=== PATIENT | female | born 1955 | race Caucasian/White ===

== ENCOUNTER 2018-03-23 13:30 | Outpatient (RCR) | payer BC, SELFPAY ==
--- NOTE | 2018-03-23 13:30 | PTDS_ITS ---
Date: March 23, 2018 Referring: Blue Ross MD Diagnosis: S/p L proximal humeral fracture 09/29/17 PT Dx: Same Treatment dates: 12/29/17 to 03/23/18 Subjective: Shahnaz states her shoulder is feeling pretty good. She continues to have concerns about her exercises influencing her symptoms of sciatica. States she continues to have difficulty reaching overhead, although feels that her exercises are getting easier. She would like to review these today. Standardized Measures: [] Objective: Posture: Patient demonstrates good upright posturing. During reaching activities she does demonstrate compensatory trunk movements with R sidebending. Palpation: Mild hypomobility noted through the glenohumeral joint on the L. ROM: Cervical motions are WNL. Active shoulder flexion allows 145 degrees, passively she tolerates 160 degrees with firm end feel. Passive IR/ER are full. Abduction allows 145. Strength: 3-/5 flexion, IR/ER are each 4/5. Treatment: Manual Therapy [id number]: Therapeutic Procedure [id number]: Consisted of manual stretching to L shoulder with passive range through all planes. Patient received sustained stretching into shoulder flexion with ending ROM as noted above. We reviewed her HEP, she does demonstrate good positioning and technique with bent over exercises, however she was instructed in various modifications including UE support to kitchen counter and completion in supported prone position. She is also instructed in sciatic nerve glides on the L for home completion and she received manual stretching to the piriformis and single knee to chest stretching. We discussed appropriate treatment planning and goals at length. Patient is in agreement with continuation of HEP. Treatment Time: 30 mins Assessment: Patient has been participating in skilled PT intervention for rehab following a L proximal humeral fracture suffered in September of 2017. She does demonstrate continued limitations in her ROM, however has been compliant with the self stretching and progressive strengthening program. 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 We also review safe positioning and technique for these at length today. ST: Functional reach of L UE allowing to put dishes away in overhead shelves. ( MET) 2: Patient able to independently don/doff shirt. (MET) LT: Patient able to resume gardening activities without exacerbation of pain. ( MET) 2: Full independence in self mobilization and continued strengthening activities. (MET) Plan: D/c to HEP. SS/dl
== END 2018-04-10 23:59 | disposition home or self-care (01) ==
LOC: PT 13:30
PROVIDERS: PCP Family Medicine; Referring Provider Orthopaedic Surgery; Visit Provider Orthopaedic Surgery
DX: S42.322D Displaced transverse fracture of shaft of humerus, left arm, subsequent encounter for fracture with routine healing (principal)
CPT/HCPCS: 97110; 97140

== ENCOUNTER 2019-03-17 00:55 | Outpatient (CLI) | payer BC, SELFPAY ==
--- NOTE | 2019-03-17 10:30 | DI.MAMMO_ITS ---
SYMPTOM/DIAGNOSIS: SCREENING Z12.31 BILATERAL SCREENING MAMMOGRAM: Mammograms were interpreted according to the usual protocol including computer analysis with CAD system, tomosynthesis and C view imaging. Comparison is made with exams from 2014 through 2018. The breasts are composed of extremely dense fibroglandular tissue, breast density category D. No suspicious masses or suspicious microcalcifications are seen. There has been no significant change. IMPRESSION: Category 1, negative mammogram. Yearly sceening mammography is recommended. Breast density category D. SA ASSESSMENT OF FINDINGS: Negative. Category 1. Patient will receive a letter notifying them of these results. BI-RADS category D. The breasts are extremely dense, which lowers the sensitivity of mammography.
== END 2019-03-17 01:15 ==
PROVIDERS: PCP Family Medicine; Visit Provider Obstetrics & Gynecology Gynecology
DX: Z12.31 Encounter for screening mammogram for malignant neoplasm of breast (principal)
CPT/HCPCS: 77063; 77067

== ENCOUNTER 2020-03-20 01:51 | Outpatient (CLI) | payer BC, SELFPAY ==
--- NOTE | 2020-03-20 11:00 | DI.MAMMO_ITS ---
EXAM: MG MAMMO SCREENING CLINICAL HISTORY: screening TECHNIQUE: Bilateral full field digital CC and MLO mammographic images were obtained with 3D tomosyn thesis and utilizing computer aided detection (CAD). COMPARISON: Available for comparison. FINDINGS: Masses/Architectural Distortion: There is a small asymmetric density in the medial right breast seen on the craniocaudad view. Microcalcifications: No suspicious pleomorphic-type are seen. Skin Thickening/Nipple Retraction: None. IMPRESSION: 1. Small asymmetric density in the medial right breast on the CC view. 2. Spot compression view and right breast ultrasound are requested for further evaluation. BI-RADS Category 0 - Assessment Incomplete: Need additional imaging evaluation Breast Density - Category C - Heterogeneously dense The mammogram demonstrates the patient's breast tissue is dense. Dense breast tissue is very common a nd is not abnormal but dense breast tissue can make it harder to find cancer on a mammogram. Also, de nse breast tissue may increase their breast cancer risk. This information about the result of the [facility] mogram report was provided to the patient to raise their awareness. Use this report when you speak wi th the patient about their risks for breast cancer, which includes their family history. At that time , you may recommend for more screening tests (Ultrasound or MRI) as they might be useful based on the ir risk. A negative radiographic report should not delay biopsy if a dominant or clinically suspicious mass is present. Up to ten percent of cancers are not identified on mammography. A negative report may reinforce clinical impression. Adenosis and dense breasts may obscure an underlying neoplasm. False positive reports average 6 to 10%. Patient will receive a letter notifying them of these results.
== END 2020-03-20 02:11 ==
PROVIDERS: PCP Family Medicine; Visit Provider Nurse Practitioner Family
DX: Z12.31 Encounter for screening mammogram for malignant neoplasm of breast (principal); R92.2 Inconclusive mammogram
CPT/HCPCS: 77063; 77067

== ENCOUNTER 2020-03-21 01:31 | Outpatient (CLI) | payer BC, SELFPAY ==
--- NOTE | 2020-03-21 11:06 | DI.MAMMO_ITS ---
EXAM: MG MAMMO SCREEN CALL BACK UNI CLINICAL HISTORY: F/U MAMMO,SMALL ASYMMETRIC DENSITY MEDIAL RT BREAST. TECHNIQUE: Craniocaudal and mediolateral oblique Full Field Digital Mammography views of the right b reast with Computer Aided Diagnosis followed by Tomosynthesis and right breast ultrasound. COMPARISON: Priors available for comparison. FINDINGS: Mammography/Tomosynthesis: Masses/Architectural Distortion: None seen. Microcalcifictions: No suspicious pleomorphic-type are seen. Skin Thickening/Nipple Retraction: None. Right breast US: Echotexture: Normal appearance of the glandular tissue. Shadowing: No suspicious foci. Cyst: None. Solid lesions: None seen. Ductal dilation: None. IMPRESSION: 1. No evidence of malignancy is noted. 2. Six-month follow-up right mammogram is recommended. 3. The findings were discussed with the patient on the date of the examination. BI-RADS Category 3 - 6 month - Probably Benign Finding: Recommend follow-up mammography in 6 months Breast Density - Category C - Heterogeneously dense The mammogram demonstrates the patient's breast tissue is dense. Dense breast tissue is very common a nd is not abnormal but dense breast tissue can make it harder to find cancer on a mammogram. Also, de nse breast tissue may increase their breast cancer risk. This information about the result of the [facility] mogram report was provided to the patient to raise their awareness. Use this report when you speak wi th the patient about their risks for breast cancer, which includes their family history. At that time , you may recommend for more screening tests (Ultrasound or MRI) as they might be useful based on the ir risk. A negative radiographic report should not delay biopsy if a dominant or clinically suspicious mass is present. Up to ten percent of cancers are not identified on mammography. A negative report may reinforce clinical impression. Adenosis and dense breasts may obscure an underlying neoplasm. False positive reports average 6 to 10%. Patient will receive a letter notifying them of these results.
== END 2020-03-21 01:51 ==
PROVIDERS: PCP Family Medicine; Visit Provider Nurse Practitioner Family
DX: Z12.39 Encounter for other screening for malignant neoplasm of breast (principal); R92.8 Other abnormal and inconclusive findings on diagnostic imaging of breast; R92.2 Inconclusive mammogram
CPT/HCPCS: 76642; 77063; 77067

== ENCOUNTER 2020-03-31 09:19 | Day surgery (SDC) | payer BC, SELFPAY ==
[2020-03-31] MEDS: Lactated Ringers 500 ML IV (09:50)
[2020-03-31] MEDS: Lactated Ringers 1,000 ML 80 ML IV (09:51)
[2020-03-31 09:54] VITALS: BP 102/73; PULSE 88; RESP 16; TEMP 35.8; O2SAT 100
--- NOTE | 2020-03-31 11:14 | BOWEL_PTH ---
PATIENT: Kimberly Red LOC: [facility] U#:[id number] AGE/SX: 64/F ROOM: RE03/31/[address]: Darling Farooq MD : 1955 BED: DIS: 03/31/2020 SPEC #: [id number] RECD: 03/31/20 12:37 STATUS: JOSE REJose #: [id number] GAYE: 03/31/20 11:[address]: Darling Farooq DEPT: Surgical Specimen RECD BY: Lanette Moise ENTERED: 03/31/20 12:37 SP TYPE: Bowel OTHR DR: Carmela Lockwood Tissues: 1 - BIOPSY BOWEL 2 - BIOPSY BOWEL Procedures: GROSS AND MICRO LEVEL 4 Comments: [id number]
--- NOTE | 2020-03-31 11:40 | W.PM.DSUDISC ---
Discharge Plan Disposition Patient Disposition: HOME Condition: Good Discharge Details Reason For Visit: Colonoscopy Attending Provider: Darling Farooq Primary Care Provider: Carmela Lockwood Home Meds and New Rx's Prescriptions: Continued ferrous sulfate [Iron (ferrous sulfate)] 325 MG tablet 325 mg PO 3X week RF: 0 ascorbic acid (vitamin C) [Vitamin C] 500 MG capsule, extended release 500 mg PO DAILY RF: 0 calcium carbonate 500 MG tablet,chewable 500 mg PO DAILY RF: 0 Discharge Instructions Additional Instructions: Findings: Two small polyps were removed. My office will contact you with biopsy results. Follow up: Plan for a colonoscopy in 3 years. Please call if you develop: fevers >101.5 Nausea or Vomiting Abdominal pain that is not transient Bleeding DAY SURGERY UNIT POST COLONOSCOPY INSTRUCTIONS 1. Because there will be medication in your system for the next 24 hours, you may feel a little sleepy. Your coordination will be affected. Therefore: a. Do not drive or operate dangerous equipment for 24 hours. b. Do not drink alcohol beverages for 24 hours (not even beer). c. Plan to go home and rest for the day. 2. Generally there are no restrictions on your activity after a day or so has gone by, but you may feel a bit fatigued for a few days. 3 After you arrive home you may have a light meal and return to a normal diet as you can tolerate it without feeling sick to your stomach. 4. After surgery, you may feel pain or discomfort. This should be only transient, but if it persists please contact your doctor. 5. If there are any questions regarding the findings of your procedure, please feel free to contact your doctor. 6. If you are unable to contact your doctor with a problem, contact the hospital at [phone]. 7. Continue all your regular medications unless directed otherwise. I understand the above instructions and have no questions. Signature of Patient or Responsible Adult Escort Date/Time Name of Responsible Adult Escort Signature of Nurse Date/Time Activity:: Activity as Tolerated Diet:: As Tolerated Discharge Orders Discharge Orders: Discharge Order (Routine); Ordered 03/31/20 Ordered By: Darling Farooq DS: Diagnosis Discharge Diagnosis (1) Family history of colon cancer: Status: Acute (2) Colon polyps: Status: Acute
--- NOTE | 2020-03-31 11:42 | W.COLOREPORT ---
Date of service: 03/31/20 Time of Service: 11:42 Colonoscopy Report Date of procedure: 03/31/20 Pre-op diagnosis general: FH colon cancer, history of colon polyps Post-op diagnosis procedure note: other (Colon polyps) Procedure: Colonoscopy with snare polypectomy Surgeon: Darling Farooq Anesthesia proc note operative: MAC Indications: This 64 year old woman presents for colonoscopy. Her sister was treated for colon cancer. The patient had a colonoscopy in 2016 that showed a hyperplastic polyp. Procedure Description: The patient was placed in the left [place] position. Propofol was titrated to sedation. Digital rectal examination revealed no abnormalities. The scope was advanced to the cecum without difficulty. The ileocecal valve and appendiceal orifice were clearly identified. The prep was good. In the ascending colon a less than 1cm polyp was removed with the snare and retrieved for pathology. No abnormalities were seen in the transverse, descending colon. In the sigmoid colon a less than 1cm polyp was removed. A hemostatic clip was applied to the site as a precaution. The rectum was normal including on retroflexed view. The patient tolerated the procedure well and was stable to recovery. Plan for routine colonoscopy in 3 years or sooner if symptoms indicate.
[2020-03-31 12:22] VITALS: BP 83/56; PULSE 75; RESP 16; TEMP 36; O2SAT 100
== END 2020-03-31 12:35 | disposition home or self-care (01) ==
PROVIDERS: PCP Family Medicine; Visit Provider Surgery
PROC: 0DJD8ZZ Inspection of Lower Intestinal Tract, Via Natural or Artificial Opening Endoscopic (ICD-10-PCS; CPT 45378; principal; 2020-03-31 11:00)
DX: Z12.11 Encounter for screening for malignant neoplasm of colon (principal); Z80.0 Family history of malignant neoplasm of digestive organs; D12.2 Benign neoplasm of ascending colon; D12.5 Benign neoplasm of sigmoid colon; Z87.19 Personal history of other diseases of the digestive system
CPT/HCPCS: 45385; 45382; 88305

== ENCOUNTER 2020-09-20 02:06 | Outpatient (CLI) | payer BC, SELFPAY ==
--- NOTE | 2020-09-20 06:30 | DI.MAMMO_ITS ---
EXAM: MG MAMMO DIAGNOSTIC UNI CLINICAL HISTORY: 6 month f/u,diagnostic, r92.8. COMPARISON: MG MAMMOGRAPHY DIGITAL SCREENING BILATERAL from 04/04/2015 MG Screening Bilat Mammo from 09/24/2016 MG MG mammo screening from 03/17/2019 MG MG MAMMO SCREENING from 03/20/2020 US US BREAST RT LIMITED from 03/21/2020 MG MG MAMMO SCREEN CALL BACK UNI from 03/21/2020 [id number] TECHNIQUE: Craniocaudal and mediolateral oblique Full Field Digital Mammography views of the right breast with Computer Aided Diagnosis followed by Tomosynthesis. FINDINGS: Mammography/Tomosynthesis: This is a six-month follow-up for small asymmetric density seen in the medial right breast on the CC view. Masses/Architectural Distortion: None seen. Microcalcifications: No suspicious pleomorphic-type are seen. Skin Thickening/Nipple Retraction: None. Previously questioned area of nodularity is not seen on the current exam. IMPRESSION: 1. No evidence of malignancy is noted. 2. Unless there is more urgent need, follow-up screening mammography is recommended, as per [employer] guidelines. BI-RADS Category 1 - Negative Breast Density - Category C - Heterogeneously dense Breast density category C or D implies that the patient has dense breast tissue. Dense breast tissue is very common and is not abnormal but dense breast tissue can make it harder to find cancer on a ma mmogram. Also, dense breast tissue may increase their breast cancer risk. This information about the result of the mammogram report was provided to the patient to raise their awareness. Use this report when you speak with the patient about their risks for breast cancer, which includes their family hist ory. At that time, you may recommend for more screening tests (Ultrasound or MRI) as they might be us eful based on their risk. A negative radiographic report should not delay biopsy if a dominant or clinically suspicious mass is present. Up to ten percent of cancers are not identified on mammography. A negative report may reinforce clinical impression. Adenosis and dense breasts may obscure an underlying neoplasm. False positive reports average 6 to 10%. Patient will receive a letter notifying them of these results.
== END 2020-09-20 02:07 ==
LOC: DI 02:06
PROVIDERS: PCP Family Medicine; Visit Provider Nurse Practitioner Family
DX: R92.8 Other abnormal and inconclusive findings on diagnostic imaging of breast (principal)
CPT/HCPCS: 77061; 77065; G0279

== ENCOUNTER 2020-11-29 13:30 | Outpatient (REF) | payer BC, SELFPAY ==
[2020-11-29 22:05] LABS: ALT 21 U/L (14-59); AST 21 U/L (15-37); Alkaline Phosphatase 86 U/L (46-116); Anion Gap 7.8 mmol/L (3-11); BUN 14 mg/dL (7-18); Bilirubin, Total 0.2 mg/dL (0.2-1.0); CO2 31.2 mmol/L (21.0-32.0); CREATININE 0.9 mg/dL (0.55-1.02); Calculated LDL 135 mg/dL (<100); Chloride 105 mmol/L (98-107); Cholesterol 219 mg/dL (<200); Glucose 98 mg/dL (74-106); HDL Cholesterol 58 mg/dL (40-60); Potassium 3.8 mmol/L (3.5-5.1); Sodium 144 mmol/L (136-145); Total Protein 7.2 g/dL (6.4-8.2); Triglyceride 134 mg/dL (<150)
[2020-11-30 04:57] LABS: Vitamin D 25 Total 24.5 ng/mL (30-100)
== END 2020-11-29 13:31 | disposition home or self-care (01) ==
LOC: NCHCN 13:30
PROVIDERS: PCP Family Medicine; Visit Provider Family Medicine
DX: Z00.00 Encounter for general adult medical examination without abnormal findings (principal); E78.5 Hyperlipidemia, unspecified; E55.9 Vitamin D deficiency, unspecified; N80.9 Endometriosis, unspecified
CPT/HCPCS: 80053; 80061; 82306

== ENCOUNTER 2021-04-03 03:20 | Outpatient (CLI) | payer BC, MEDICARE, SELFPAY ==
--- NOTE | 2021-04-03 | DI.MAMMO_ITS ---
Exam(s) MAMMO SCREENING EXAM: MAMMO SCREENING CLINICAL HISTORY: SCREENING, Z12.31 TECHNIQUE: Mammograms were interpreted according to the usual protocol including computer analysis w [employer] CAD system, tomosynthesis and C-view imaging. COMPARISON: 2011 through September 2020 FINDINGS: The breasts are composed of heterogeneously dense fibroglandular densities, Breast Density category C . No suspicious masses or suspicious microcalcifications are seen. There is a stable area of nodularit y in the stump 0 STIR superior left breast. No skin thickening or abnormal axillary lymph nodes are seen. There has been no significant change from prior exams. IMPRESSION: BI-RADS Cat 2 - Benign Findings Yearly screening mammography is recommended. Breast Density Category C, heterogeneously Dense. The mammogram demonstrates the patient's breast tissue is dense. Dense breast tissue is very common a nd is not abnormal but dense breast tissue can make it harder to find cancer on a mammogram. Also, de nse breast tissue may increase breast cancer risk. This information about the result of the mammogram report was provided to the patient to raise their awareness. Use this report when you speak with the patient about their risks for breast cancer, which includes their family history. At that time, you may recommend additional screening tests (Ultrasound or MRI) as they might be useful based on their r isk. A negative radiographic report should not delay biopsy if a dominant or clinically suspicious mass is present. Up to ten percent of cancers are not identified on mammography. A negative report may reinforce clinical impression. Adenosis and dense breasts may obscure an underlying neoplasm. False positive reports average 6 to 10%.
== END 2021-04-03 03:40 ==
PROVIDERS: PCP Family Medicine; Visit Provider Family Medicine
DX: Z12.31 Encounter for screening mammogram for malignant neoplasm of breast (principal); R92.2 Inconclusive mammogram; N63.21 Unspecified lump in the left breast, upper outer quadrant
CPT/HCPCS: 77063; 77067

== ENCOUNTER 2021-08-24 14:24 | Outpatient (REF) | payer BC, MEDICARE, SELFPAY ==
[2021-08-25 11:54] LABS: COVID-19 RT-PCR UVMMC Result Negative (Negative)
== END 2021-08-24 14:25 | disposition home or self-care (01) ==
LOC: NCHCN 14:24
PROVIDERS: PCP Family Medicine; Visit Provider Family Medicine
DX: Z20.822 Contact with and (suspected) exposure to COVID-19 (principal); J02.9 Acute pharyngitis, unspecified
CPT/HCPCS: U0003

== ENCOUNTER 2021-11-07 14:54 | Outpatient (REF) | payer BC, SELFPAY ==
[2021-11-07 17:13] LABS: ALT 23 U/L (14-59); AST 19 U/L (15-37); Alkaline Phosphatase 68 U/L (46-116); Anion Gap 5.7 mmol/L (3-11); BUN 12 mg/dL (7-18); Bilirubin, Total 0.4 mg/dL (0.2-1.0); CO2 30.3 mmol/L (21.0-32.0); CREATININE 0.7 mg/dL (0.55-1.02); Calcium 9.1 mg/dL (8.5-10.1); Chloride 103 mmol/L (98-107); Glucose 89 mg/dL (74-106); Potassium 4.5 mmol/L (3.5-5.1); Sodium 139 mmol/L (136-145); Total Protein 7.1 g/dL (6.4-8.2)
[2021-11-08 14:04] LABS: Vitamin D 25 Total 41.2 ng/mL (30-100)
[2021-11-08 14:58] LABS: Calculated LDL 173 mg/dL (<100); Cholesterol 250 mg/dL (<200); HDL Cholesterol 65 mg/dL (40-60); Triglyceride 62 mg/dL (<150)
== END 2021-11-07 14:55 | disposition home or self-care (01) ==
LOC: NCHCN 14:54
PROVIDERS: PCP Family Medicine; Visit Provider Family Medicine
DX: Z00.00 Encounter for general adult medical examination without abnormal findings (principal); E78.5 Hyperlipidemia, unspecified; E55.9 Vitamin D deficiency, unspecified; R42 Dizziness and giddiness
CPT/HCPCS: 80053; 80061; 82306

== ENCOUNTER 2022-01-11 11:30 | Outpatient (REF) | payer BC, SELFPAY ==
--- NOTE | 2022-01-11 11:00 | PAPFT_PTH ---
PATIENT: Kimberly Red LOC: [facility] U#:[id number] AGE/SX: 66/F ROOM: RE01/11/[address]: Keiko Fontenot : 1955 BED: DIS: 01/11/2022 SPEC #: [id number] RECD: 01/11/22 12:53 STATUS: JOSE REJose #: [id number] GAYE: 01/11/22 11:[address]: Keiko Fontenot DEPT: [facility] Cytology RECD BY: Lanette Moise ENTERED: 01/11/22 12:54 SP TYPE: PAPFT OTHR DR: Carmela Lockwood Tissues: 1 - CX/ENDOCX FOR PAP SMEARS Procedures: PAP THIN PREP/UVM Screening HPV DNA PROBE Comments: [id number]
== END 2022-01-11 11:31 | disposition home or self-care (01) ==
LOC: LBN 11:30
PROVIDERS: PCP Family Medicine; Visit Provider Obstetrics & Gynecology Gynecology
DX: Z12.4 Encounter for screening for malignant neoplasm of cervix (principal); Z11.51 Encounter for screening for human papillomavirus (HPV)
CPT/HCPCS: 88142; 87624

== ENCOUNTER → 2022-04-04 00:43 | Outpatient (CLI) | payer BC, SELFPAY ==
--- NOTE | 2022-04-04 11:45 | DI.MAMMO_ITS ---
Exam(s) MAMMO SCREENING EXAM: MAMMO SCREENING CLINICAL HISTORY: screening TECHNIQUE: Mammograms were interpreted according to the usual protocol including computer analysis w [employer] CAD system, tomosynthesis and C-view imaging. COMPARISON: FINDINGS: The breasts are heterogeneously dense. No dominant mass or clumped microcalcification is identified in either breast. There are couple of a small well-circumscribed umbilicated nodules of the left fatimah ast which probably represent lymph nodes and which are unchanged in appearance in comparison with pre vious examinations including March 2021. No other significant change is seen. IMPRESSION: No specific evidence of malignancy at this time. Routine screening examinations are suggested at yea rly intervals due to the family history of breast carcinoma. BI-RADS Category 1 - Negative Breast Density - Category C - Heterogeneously dense
== END ==
PROVIDERS: PCP Family Medicine; Visit Provider Obstetrics & Gynecology Gynecology
DX: Z12.31 Encounter for screening mammogram for malignant neoplasm of breast (principal); R92.8 Other abnormal and inconclusive findings on diagnostic imaging of breast
CPT/HCPCS: 77063; 77067

== ENCOUNTER 2022-09-20 13:25 | Outpatient (REF) | payer BC, SELFPAY ==
[2022-09-20 20:57] LABS: ALT 18 U/L (14-59); AST 24 U/L (15-37); Albumin 4.1 g/dL (3.4-5.0); Alkaline Phosphatase 82 U/L (46-116); Anion Gap 6.3 mmol/L (3-11); BUN 14 mg/dL (7-18); Bilirubin, Total 0.3 mg/dL (0.2-1.0); CO2 31.7 mmol/L (21.0-32.0); CREATININE 0.7 mg/dL (0.55-1.02); Calcium 9.3 mg/dL (8.5-10.1); Calculated LDL 138 mg/dL (<100); Chloride 99 mmol/L (98-107); Cholesterol 220 mg/dL (<200); Estimated GFR 93.56 (mL/min/1.73m2); Glucose 106 mg/dL (74-106); HDL Cholesterol 67 mg/dL (40-60); Potassium 4.5 mmol/L (3.5-5.1); Sodium 137 mmol/L (136-145); Triglyceride 78 mg/dL (<150)
== END 2022-09-20 13:26 | disposition home or self-care (01) ==
LOC: NCHCN 13:25
PROVIDERS: PCP Family Medicine; Visit Provider Family Medicine
DX: E78.5 Hyperlipidemia, unspecified (principal)
CPT/HCPCS: 80053; 80061

== ENCOUNTER 2023-04-10 07:42 | Day surgery (SDC) | payer BC, SELFPAY ==
--- NOTE | 2023-04-09 18:24 | W.ANESPRE ---
General Info Date of Service Date Performed: 04/10/23 Height: 5 ft 1 in Weight: 41.901 kg Body Mass Index (BMI): 17.4 Surgical Procedure: Operation Date: 04/10/23 09:05 Proposed Procedure Side Surgeon p Colonoscopy Lenin Ricks MD Meds Allergies and Home Medications Allergies Allergy/AdvReac Type Severity Reaction Status Date / Time aspirin Allergy Severe swelling Verified 04/10/23 08:02 in lymph nodes Home Medication Medication Instructions Recorded ferrous sulfate 325 mg (65 mg 325 mg PO 3X week 01/02/18 iron) tablet (Iron (ferrous sulfate)) ascorbic acid (vitamin C) 500 mg 500 mg PO PRN 01/11/22 capsule,extended release (Vitamin C) cholecalciferol (vitamin D3) 50 50 mcg PO DAILY 03/11/23 mcg (2,000 unit) tablet Current Visit Medications: Current Medications Generic Name Dose Route Start Last Admin Trade Name Freq PRN Reason Stop Dose Admin Ringer's Solution 1,000 mls @ 80 mls/hr 04/10/23 06:00 IV 05/09/23 23:59 INFUSION MAX IV Miscellaneous Supplies 1 each 04/10/23 06:00 Iv Access IV 05/09/23 23:59 DIRECTED MAX Sodium Chloride 0 ml 04/10/23 06:00 Normal Saline Flush 10 Ml Syr IV 05/09/23 23:59 PRN PRN Sodium Chloride 0 ml 04/10/23 06:00 Normal Saline 10 Ml Vial IJ 05/09/23 23:59 DIRECTED PRN Sterile Water 0 ml 04/10/23 06:00 Water,Injection,Sterile 10 Ml Vial IJ 05/09/23 23:59 DIRECTED PRN PFSH Active Problems Active Problems: Problem Status Onset Code Skin lesion of face L98.9 Encounter for annual routine gynecological examination Z01.419 Tubular adenoma of colon D12.6 Colon polyps K63.5 Family history of colon cancer Z80.0 Family history of breast cancer Z80.3 Dense breasts R92.2 Medical History Medical History Adult BMI <19 kg/sq m 17.6 Humerus fracture proximal L humerus. Non-surgical management. Medical History Comments:: Pt. states she prefers fentanyl and versed over propofol for sedation Surgical History Surgical History dermoid removal History of removal of ovarian cyst Tobacco Smoking/Tobacco Use Status: Former Tobacco Use Passive smoking exposure: No Alcohol Alcohol Intake: current Alcohol intake frequency: 0-2 drinks per day Alcohol type: wine Substance Use Substance use type: does not use Prental History History 4 Para 3 Hx # Term Pregnancies Multiple births Hx # Pregnancies Ectopic pregnancies AB induced 1 Hx Number of Living Children AB spontaneous Vital Signs and Lab Results Vital Signs Most Recent Vital Signs in EMR: Temp Pulse Resp BP Pulse Ox 36.6 C 74 17 98/61 L 100 04/10/23 07:55 04/10/23 07:55 04/10/23 07:55 04/10/23 07:55 04/10/23 07:55 Lab Results Blood Type / Crossmatch: No Data to Display Complete Blood Count: No Data to Display Complete Metabolic Panel: No Data to Display Liver Function Panel: No Data to Display Coagulation Panel: No Data to Display Cardiac Panel: No Data to Display Arterial Blood Gas: No Data to Display Venous Blood Gas: No Data to Display Pancreas Panel: No Data to Display Thyroid Panel: No Data to Display Infectious Disease: No Data to Display Blood Cultures: No Data to Display Toxicology Panel: No Data to Display Anesthesia Assessment and Plan Anesthesia History Personal History: No History of Anesthesia Complications, PONV (after hernia surgery, had spinal) and Awareness Under Anesthesia Family History: No Family History of Anesthesia Complications Exercise Tolerance Exercise Tolerance: Metabolic Equivalents>4 Pertinent Negatives Pertinent Negatives: No Symptoms of GERD, No Major Cardiovascular Symptoms or Complaints, No Major Pulmonary Symptoms or Complaints and No History of CVA/TIA Cardiac & Pulmonary Exam Cardiac Exam: Normal S1/S2 Heart Sounds Pulmonary Exam: Clear Bilateral Breath Sounds Implantable Cardiac Device Does patient have a Pacemaker or an ICD?: No Airway Exam Known Difficult Airway: No Mallampati Class: 3 Mouth Opening: Normal (> 3cm) Thyromental Distance: Greater than 3 cm Neck Range of Motion: Full ROM (but occasionally gets dizzy when looks up toward ceiling) Neck Circumference: Normal Teeth Condition: Normal Dentition ASA Classification ASA Score: ASA 2 Emergency Case?: No NPO Status NPO Status: NPO Clears >2 hours, Solids >8 hours Anesthesia Plan Resuscitation Status: Full Code Anesthesia Technique: General Anesthesia Airway Planned: Natural Airway Monitors Used: Standard Monitors Preoperative Comments:: 67 yo female for colo. Has requested midaz/fent, feels she did better with this than prop. Does agree to a small amount of propofol if necessary to maintain comfort. Sig PMHx: former smoker, occ EtOH Previous Anes: - colo, prop (50)/prop gtt (50), natural airway, no issues.
--- NOTE | 2023-04-09 22:35 | W.PM.DSUDISC ---
Date of service: 04/10/23 Time of Service: 09:20 Discharge Plan Disposition Patient Disposition: Home Condition: Good Discharge Details Reason For Visit: Screening colonoscopy Attending Provider: Lenin Ricks Primary Care Provider: Carmela Lockwood Home Meds and New Rx's Prescriptions: Continued cholecalciferol (vitamin D3) 50 mcg (2,000 unit) tablet 50 mcg PO DAILY ferrous sulfate [Iron (ferrous sulfate)] 325 MG tablet 325 mg PO 3X week ascorbic acid (vitamin C) [Vitamin C] 500 mg capsule, extended release 500 mg PO PRN Discontinued peg 3350-electrolytes [Golytely] 236-22.74-6.74 -5.86 gram recon soln 240 ml PO ONCE Qty: 4000 0RF Rx Instructions: only take 1/2 the bottle bisacodyl [Dulcolax (bisacodyl)] 5 mg tablet,delayed release (DR/EC) 5 mg PO ONCE Qty: 4 0RF Rx Instructions: Take as directed for your colonoscopy Discharge Instructions Additional Instructions: Kimberly, we were able to finish your colonoscopy today without any real difficulty. The quality of your prep was excellent. I did see some mild internal hemorrhoids. These typically flareup with the colonoscopy prep. If they become more burdensome, I would recommend [id number] treatments to start. Otherwise, the colonoscopy was totally negative. I did not see any tumors or polyps. Based on your family history, and your personal history of adenomatous polyps, I recommend another colonoscopy in 5 years. 1. If tolerated, consume a soft, low fiber diet for 1-2 days. 2[address] Do not drive, drink alcohol, operate machinery, make critical decisions, or do activities that require coordination or balance for 24 hours. 3. Because air was put into your colon during the procedure, expelling air from your rectum (passing gas or farting) is normal. 4. You may not have a bowel movement for 1-3 days because of the colonoscopy prep. This is normal. 5. Go directly to the emergency room if you notice any of the following: Develop chills (warm to touch), or if you have a thermometer and your temperature is above 101 Difficulty breathing or difficultly swallowing Persistent vomiting Severe abdominal pain, other than gas cramps Severe chest pain Black, tarry stools Any bleeding ? exceeding one tablespoon 6. Call your physician if the site where your intravenous was started becomes red, swollen, painful, and warm to touch. 7. Your physician has reviewed your pre-procedure medications. Please continue to take those medications as previously ordered. You will be given specific information/education regarding any changes to your medications before leaving. Activity:: Activity as Tolerated Diet:: As Tolerated Discharge Orders Discharge Orders: Discharge Order (Routine); Ordered 04/09/23 Ordered By: Lenin Ricks DS: Diagnosis Discharge Diagnosis (1) Colon polyps: Status: Acute Asessment and Plan: Based on previous history, family history, and today's colonoscopy, I recommend another colonoscopy in 5 years
--- NOTE | 2023-04-09 22:37 | W.COLOREPORT ---
Date of service: 04/10/23 Time of Service: 09:21 Colonoscopy Report Date of procedure: 04/10/23 Pre-op diagnosis general: Screening colonoscopy Post-op diagnosis procedure note: other (Internal hemorrhoid) Procedure: colonoscopy Surgeon: Lenin Ricks Anesthesia Type: MAC Estimated blood loss (mL): 0 Pathology: none sent Complications: None Disposition: same day Indications: Kimberly is a 67-year-old woman with a past history of adenomatous polyps. She is here for another colonoscopy. Prep: NuLYTELY Procedure Start Time: 08:51 Procedure End Time: 09:12 Retraction Time: 13 Findings: Negative screening colonoscopy Procedure Description: After the induction of monitored anesthetic care, and with the patient in left lateral decubitus position, I began by performing an external anorectal exam.? Perineum and skin were normal, as was the anal verge.? There was no evidence of external hemorrhoids.? Next, I performed a digital rectal exam.? I did not appreciate any abnormal findings.? Next, I advanced a colonoscope into the rectal vault.? I performed retroflexion.? There are grade 1 internal hemorrhoids.? Using insufflation, I then advanced the colonoscope beyond the rectal folds and into the sigmoid colon before advancing towards the cecum.? The quality of the prep was excellent.? The scope was noted to be in the cecum by identification of the ileocecal valve and appendiceal orifice.? I then began withdrawing the colonoscope using repeated irrigation as necessary for full evaluation of the colonic mucosa. ?Once the scope was withdrawn to the level of the rectum, great care was taken to examine portions of the rectal folds.? I did not see any signs of tumors or polyps anywhere along the length of the colon. Finally, the scope was withdrawn and the patient was brought to the same-day surgery recovery unit as the anesthetic wore off. ?The findings and instructions were shared with the patient prior to discharge.
[2023-04-10 07:55] VITALS: BP 98/61; PULSE 74; RESP 17; TEMP 36.6; O2SAT 100
[2023-04-10] MEDS: Lactated Ringers 1,000 ML 80 ML IV (08:06)
[2023-04-10 08:22] VITALS: BMI 17.4
[2023-04-10 09:15] VITALS: BP 98/60; PULSE 64; RESP 14; TEMP 36.2; O2SAT 100
--- NOTE | 2023-04-10 09:27 | W.ANESPOSTOP ---
Postoperative Evaluation Date, Time and Location Date Performed: 04/10/23 Time Performed: 09:27 Patient Location: Day Surgery Unit Vital Signs Most Recent Imported Vital Signs: Most Recent Vital Signs Temp Pulse Resp BP Pulse Ox 36.2 C L 64 14 98/60 L 100 04/10/23 09:15 04/10/23 09:15 04/10/23 09:15 04/10/23 09:15 04/10/23 09:15 Pain Score Most Recent Pain Score: Most Recent Pain Score Pain Level 0 04/10/23 09:15 Assessment Mental Status: Awake (Alert & Oriented to Patient Baseline) Airway and Respiratory Function: Patent airway with normal (patient baseline) respiratory exam Cardiovascular Function: Hemodynamically Stable Hydration Status: Adequately Hydrated Nausea & Vomiting: No Nausea or Vomiting Pain: Pt. Denies Any Pain Peripheral Nerve Block: Patient did not receive a nerve block
[2023-04-10 09:48] VITALS: BP 92/62; PULSE 73; RESP 16; TEMP 36.3; O2SAT 98
[2023-04-10] MEDS: Droperidol 5 MG/2 ML VIAL 0.625 MG IVP (10:20)
[2023-04-10] MEDS: Normal Saline Flush 10 ML SYR IV (10:21)
[2023-04-10 10:26] VITALS: BP 98/60; PULSE 70; RESP 14; TEMP 36.3; O2SAT 99
== END 2023-04-10 10:55 | disposition home or self-care (01) ==
PROVIDERS: PCP Family Medicine; Visit Provider Surgery
PROC: 0DJD8ZZ Inspection of Lower Intestinal Tract, Via Natural or Artificial Opening Endoscopic (ICD-10-PCS; CPT 45378; principal; 2023-04-10 09:00)
DX: Z12.11 Encounter for screening for malignant neoplasm of colon (principal); Z86.010 Personal history of colon polyps; K64.0 First degree hemorrhoids
CPT/HCPCS: 45378; J1790; J2250; J2405; J3010

== ENCOUNTER → 2023-04-16 02:17 | Outpatient (CLI) | payer BC, SELFPAY ==
--- NOTE | 2023-04-16 11:45 | DI.MAMMO_ITS ---
Exam(s) MAMMO SCREENING EXAM: MAMMO SCREENING CLINICAL HISTORY: screening TECHNIQUE: Bilateral full field digital CC and MLO mammographic images were obtained with 3D tomosyn thesis and utilizing computer aided detection (CAD). COMPARISON: Available for comparison. FINDINGS: Masses/Architectural Distortion: There is a 6 mm nodule in the central left breast on the MLO view. No areas of architectural distortion is seen. There is a stable nodule seen in the posterior medial left breast. Microcalcifications: No suspicious pleomorphic-type are seen. Skin Thickening/Nipple Retraction: None. IMPRESSION: 1. 6 mm nodule in the central left breast. 2. This area should be further evaluated with a spot compression view. Ultrasound should also be obt ained at that time. BI-RADS Category 0 - Assessment Incomplete: Need additional imaging evaluation Breast Density - Category C - Heterogeneously dense Breast density category C or D implies that the patient has dense breast tissue. Dense breast tissue is very common and is not abnormal but dense breast tissue can make it harder to find cancer on a ma mmogram. Also, dense breast tissue may increase their breast cancer risk. This information about the result of the mammogram report was provided to the patient to raise their awareness. Use this report when you speak with the patient about their risks for breast cancer, which includes their family hist ory. At that time, you may recommend for more screening tests (Ultrasound or MRI) as they might be us eful based on their risk. A negative radiographic report should not delay biopsy if a dominant or clinically suspicious mass is present. Up to ten percent of cancers are not identified on mammography. A negative report may reinforce clinical impression. Adenosis and dense breasts may obscure an underlying neoplasm. False positive reports average 6 to 10%. Patient will receive a letter notifying them of these results.
== END ==
PROVIDERS: PCP Family Medicine; Visit Provider Obstetrics & Gynecology Gynecology
DX: Z12.31 Encounter for screening mammogram for malignant neoplasm of breast (principal); C50.812 Malignant neoplasm of overlapping sites of left female breast
CPT/HCPCS: 77063; 77067

== ENCOUNTER → 2023-04-18 00:48 | Outpatient (CLI) | payer BC, SELFPAY ==
--- NOTE | 2023-04-18 | DI.US_ITS ---
Exam(s) MG MAMMO SCREEN CALL BACK UNI US BREAST LT COMPLETE EXAM: MG MAMMO SCREEN CALL BACK UNI and U/S LT complete CLINICAL HISTORY: 6 MM NODULE LEFT BREAST R92.8 ABNL MAMMO. TECHNIQUE: Craniocaudal and mediolateral oblique Full Field Digital Mammography views of the left br east with Computer Aided Diagnosis followed by Tomosynthesis and left breast ultrasound. COMPARISON: Comparison is made with prior examinations. FINDINGS: Mammography/Tomosynthesis: Masses/Architectural Distortion: The identified area in the central left breast is less concerning on the additional views. It does not persist. No suspicious masses or areas of architectural distorti on is seen. There is a stable nodule in the posterior medial left breast. This is unchanged compare d to multiple prior examinations. Microcalcifictions: No suspicious pleomorphic-type are seen. Skin Thickening/Nipple Retraction: None. Complete left breast US: Echotexture: Normal appearance of the glandular tissue. Shadowing: No suspicious foci. Cyst: There are 2 adjacent cysts at the 10 o'clock position of the left breast 3 cm from the nipple m easuring 0.4 x 0.2 x 0.2 cm. Solid lesions: None seen. Ductal dilation: None. IMPRESSION: 1. No evidence of malignancy is noted. 2. Unless there is more urgent need, follow-up screening mammography is recommended, as per [employer] guidelines. 3. The findings were discussed with the patient on the date of the examination. BI-RADS Category 2 - Benign Findings Breast Density - Category C - Heterogeneously dense Breast density Category C or D implies that the patient has dense breast tissue. Dense breast tissue can make it harder to find cancer on a mammogram. Dense breast tissue is also associated with an incr eased risk of breast cancer. This information about the result of the mammogram report was provided to the patient to raise their awareness. Use this report when you speak with the patient about their risks for breast cancer, which includes their family history. At that time, you may recommend additional screening tests (Ultrasoun d or MRI) as these tests may add significant information. A negative radiographic report should not delay biopsy if a dominant or clinically suspicious mass is present. Up to ten percent of cancers are not identified on mammography. A negative report may reinforce clinical impression. Adenosis and dense breasts may obscure an underlying neoplasm. False positive reports average 6 to 10%. Patient will receive a letter notifying them of these results.
--- OUTSIDE RECORDS SUMMARY | 2023-04-18 00:49 | XMS_ITS | Continuity of Care Document ---
Author Name Unknown Organization [facility] Ambulatory Clinics Address [address] [place] [address] Care Team Providers Care Industrial Relations Commissioner Name Role Phone DAVINA TIJERINA Primary Care Physician Encounter [facility] NBR [id number] Date(s): 03/21/23 - 03/21/23 [facility] Ambulatory Clinics [address] [place] [address]- [place] Patient Care team information Care Team Personnel Name: DAVINA TIJERINA Position: No Access Member Role: Primary Care Physician Address: Address: [address] [address]
== END ==
PROVIDERS: PCP Family Medicine; Visit Provider Obstetrics & Gynecology Gynecology
DX: Z12.31 Encounter for screening mammogram for malignant neoplasm of breast (principal); N63.22 Unspecified lump in the left breast, upper inner quadrant
CPT/HCPCS: 76642; 77063; 77067

== ENCOUNTER 2024-04-19 01:09 | Outpatient (CLI) | payer BC, SELFPAY ==
--- NOTE | 2024-04-19 | DI.MAMMO_ITS ---
Exam(s) MAMMO SCREENING EXAM: MAMMO SCREENING CLINICAL HISTORY: Screening, Z12.31 TECHNIQUE: Mammograms were interpreted according to the usual protocol including computer analysis w [place] CAD system, tomosynthesis and C-view imaging. COMPARISON: 2014 through 2022 FINDINGS: The breasts are composed of heterogeneously dense fibroglandular densities, Breast Density category C . No suspicious masses or suspicious microcalcifications are seen. No skin thickening or abnormal axillary lymph nodes are seen. There has been no significant change from prior exams. IMPRESSION: BI-RADS Category 1, Negative mammogram. Yearly screening mammography is recommended. Breast Density Category C, heterogeneously Dense. The mammogram demonstrates the patient's breast tissue is dense. Dense breast tissue is very common a nd is not abnormal but dense breast tissue can make it harder to find cancer on a mammogram. Also, de nse breast tissue may increase breast cancer risk. This information about the result of the mammogram report was provided to the patient to raise their awareness. Use this report when you speak with the patient about their risks for breast cancer, which includes their family history. At that time, you may recommend additional screening tests (Ultrasound or MRI) as they might be useful based on their r isk. A negative radiographic report should not delay biopsy if a dominant or clinically suspicious mass is present. Up to ten percent of cancers are not identified on mammography. A negative report may reinforce clinical impression. Adenosis and dense breasts may obscure an underlying neoplasm. False positive reports average 6 to 10%.
== END 2024-04-19 01:29 ==
LOC: DI 01:09
PROVIDERS: PCP Family Medicine; Visit Provider Family Medicine
DX: Z12.31 Encounter for screening mammogram for malignant neoplasm of breast (principal)
CPT/HCPCS: 77063; 77067

== ENCOUNTER 2024-12-15 08:26 | Outpatient (REF) | payer BC, SELFPAY ==
[2024-12-15 14:52] LABS: HCT 38.9 % (36.0-46.0); HGB 12.7 g/dL (11.2-15.7); MCH 28.9 pg (27.0-33.0); MCHC 32.6 % (32.0-36.0); MCV 89 fL (80-95); MPV 8.9 fL (8.0-11.0); Platelet Count 276 10^3/uL (130-400); RBC 4.39 10^6/uL (3.93-5.22); RDW 13.6 % (11.7-14.6); RDW-SD 44.3 fL; WBC 15.11 10^3/uL (4.4-10.8)
[2024-12-15 15:30] LABS: ALT 17 U/L (14-59); AST 24 U/L (15-37); Alkaline Phosphatase 87 U/L (46-116); Anion Gap 5.7 mmol/L (3-11); BUN 12 mg/dL (7-18); Bilirubin, Total 0.3 mg/dL (0.2-1.0); CO2 31.3 mmol/L (21.0-32.0); CREATININE 0.7 mg/dL (0.55-1.02); Calcium 9.1 mg/dL (8.5-10.1); Calculated LDL 131 mg/dL (<100); Chloride 103 mmol/L (98-107); Cholesterol 208 mg/dL (<200); Estimated GFR 92.41 (mL/min/1.73m2); Glucose 90 mg/dL (74-106); HDL Cholesterol 54 mg/dL (>or=50); Potassium 4.5 mmol/L (3.5-5.1); Sodium 140 mmol/L (136-145); Total Protein 7.1 g/dL (6.4-8.2); Triglyceride 117 mg/dL (<150); Vitamin D 25 Total 37 ng/mL (30-100)
== END 2024-12-15 08:27 | disposition home or self-care (01) ==
LOC: NCHCN 08:26
PROVIDERS: PCP Family Medicine; Visit Provider Family Medicine
DX: R42 Dizziness and giddiness (principal); E55.9 Vitamin D deficiency, unspecified; E78.5 Hyperlipidemia, unspecified
CPT/HCPCS: 80053; 80061; 82306; 85027

== ENCOUNTER 2024-12-22 09:59 | Outpatient (REF) | payer BC, SELFPAY ==
[2024-12-22 18:14] LABS: Abs Immature Grans 0.03 10^3/uL (0.0-0.06); Absolute Monocyte Count 0.87 10^3/uL (0.1-0.8); Basophils % 0.4 %; Eosinophils % 1.6 %; HCT 36.4 % (36.0-46.0); HGB 12.1 g/dL (11.2-15.7); Immature Grans % 0.2 %; Lymphocytes % 68.7 %; MCH 29.7 pg (27.0-33.0); MCHC 33.2 % (32.0-36.0); MCV 89 fL (80-95); MPV 8.8 fL (8.0-11.0); Monocytes % 5.2 %; Neutrophils % 23.9 %; Platelet Count 272 10^3/uL (130-400); RBC 4.08 10^6/uL (3.93-5.22); RDW 13.8 % (11.7-14.6); RDW-SD 45.1 fL; WBC 16.67 10^3/uL (4.4-10.8)
[2024-12-22 18:16] LABS: Absolute Basophil Count 0.07 10^3/uL (0.0-0.2); Absolute Eosinophil Count 0.27 10^3/uL (0.0-0.7); Absolute Lymphocyte Count 11.45 10^3/uL (1.2-3.4); Absolute Neutrophil Count 3.98 10^3/uL (1.2-6.7)
[2024-12-22 18:30] LABS: Diff Comment Agrees w/ Instrument; RBC Morphology Normal
== END 2024-12-22 10:00 | disposition home or self-care (01) ==
LOC: NCHCN 09:59
PROVIDERS: PCP Family Medicine; Visit Provider Family Medicine
DX: D72.828 Other elevated white blood cell count (principal)
CPT/HCPCS: 85025

== ENCOUNTER 2025-01-04 16:19 | Outpatient (REF) | payer BC, SELFPAY ==
[2025-01-06 09:12] LABS: Lyme Ab w Rflx to Lyme Confirm Negative (Negative)
[2025-01-08 16:11] LABS: Anaplasma phagocytophilum Negative (Negative); B. miyamotoi PCR Negative (Negative); Babesia divergens/MO-1 Negative (Negative); Babesia duncani Negative (Negative); Babesia microti Negative (Negative); Ehrlichia chaffeensis Negative (Negative); Ehrlichia ewingii/canis Negative (Negative); Ehrlichia muris eauclairensis Negative (Negative)
== END 2025-01-04 16:20 | disposition home or self-care (01) ==
LOC: NCHCN 16:19
PROVIDERS: PCP Family Medicine; Visit Provider Family Medicine
DX: M25.59 Pain in other specified joint (principal)
CPT/HCPCS: 87798; 86618

== ENCOUNTER 2025-04-20 02:41 | Outpatient (CLI) | payer BC, SELFPAY ==
--- NOTE | 2025-04-20 | DI.MAMMO_ITS ---
Exam(s) MAMMO SCREENING EXAM: MAMMO SCREENING CLINICAL HISTORY: SCREENING MAMMO Z12.31 TECHNIQUE: Mammograms were interpreted according to the usual protocol including computer analysis with CAD system, tomosynthesis and C-view imaging. COMPARISON: 2016 through 2023 FINDINGS: The breasts are composed of heterogeneously dense fibroglandular densities, Breast Density category C. No suspicious masses or suspicious microcalcifications are seen. No skin thickening or abnormal axillary lymph nodes are seen. There has been no significant change from prior exams. IMPRESSION: BI-RADS Category 1, Negative mammogram. Yearly screening mammography is recommended. Breast Density: Category C - The breasts are heterogeneously dense, which may obscure small masses. Breast density Category C or D implies that the patient has dense breast tissue. Dense breast tissue can make it harder to find cancer on a mammogram. Dense breast tissue is also associated with an increased risk of breast cancer. This information about the result of the mammogram report was provided to the patient to raise their awareness. Use this report when you speak with the patient about their risks for breast cancer, which includes their family history. At that time, you may recommend additional screening tests (Ultrasound or MRI) as these tests may add significant information. A negative radiographic report should not delay biopsy if a dominant or clinically suspicious mass is present. Up to ten percent of cancers are not identified on mammography. A negative report may reinforce clinical impression. Adenosis and dense breasts may obscure an underlying neoplasm. False positive reports average 6 to 10%.
== END 2025-04-20 03:01 ==
PROVIDERS: PCP Family Medicine; Visit Provider Family Medicine
DX: Z12.31 Encounter for screening mammogram for malignant neoplasm of breast (principal); R92.323 Mammographic fibroglandular density, bilateral breasts
CPT/HCPCS: 77063; 77067

== ENCOUNTER 2025-05-18 15:46 | Outpatient (CLI) | payer BC, SELFPAY ==
[2025-05-18 17:00] LABS: HCT 33.4 % (36.0-46.0); HGB 10.8 g/dL (11.2-15.7); MCH 28.6 pg (27.0-33.0); MCHC 32.3 % (32.0-36.0); MCV 88 fL (80-95); MPV 8.4 fL (8.0-11.0); Platelet Count 293 10^3/uL (130-400); RBC 3.78 10^6/uL (3.93-5.22); RDW 14.0 % (11.7-14.6); RDW-SD 45.1 fL; WBC 19.90 10^3/uL (4.4-10.8)
[2025-05-18 17:20] LABS: Abs Immature Grans 0.00 10^3/uL (0.0-0.06); Immature Grans % 0.0 %; RBC Morphology Normal
[2025-05-18 17:36] LABS: Iron 28 ug/dL (50-170); Total Iron Binding Capacity 210 ug/dL (250-450); Transferrin Sat 13 % (15-50)
[2025-05-18 18:02] LABS: ALT 24 U/L (14-59); AST 33 U/L (15-37); Albumin 3.7 g/dL (3.4-5.0); Alkaline Phosphatase 101 U/L (46-116); Anion Gap 7.8 mmol/L (3-11); BUN 15 mg/dL (7-18); Bilirubin, Total 0.3 mg/dL (0.2-1.0); CO2 33.2 mmol/L (21.0-32.0); Calcium 8.8 mg/dL (8.5-10.1); Chloride 99 mmol/L (98-107); Estimated GFR 92.41 (mL/min/1.73m2); Ferritin 161 ng/mL (8-252); Glucose 100 mg/dL (74-106); Potassium 4.0 mmol/L (3.5-5.1); Sodium 140 mmol/L (136-145); Total Protein 6.6 g/dL (6.4-8.2); Vitamin B12 464 pg/mL (193-986)
[2025-05-18 18:03] LABS: Folate > 20.0 ng/mL (8.6-20.0)
[2025-05-18 18:14] LABS: LDH 210 U/L (81-234)
[2025-05-20 15:07] LABS: Albumin 62.1 % (55.8-66.1); Albumin g/dL 4.3 g/dL (3.6-5.2); Alpha 1 g/dL 0.30 g/dL (0.15-0.40); Alpha 2 g/dL 0.80 g/dL (0.50-1.00); Beta g/dL 0.70 g/dL (0.60-1.20); Gamma g/dL 0.80 g/dL (0.60-1.60); Monoclonal Spike g/dL 0.4 g/dL (None Seen); Total Protein 6.9 g/dL (6.3-8.2)
== END 2025-05-18 15:47 | disposition home or self-care (01) ==
LOC: LBO 15:47
PROVIDERS: PCP Family Medicine; Visit Provider Internal Medicine Hematology & Oncology
DX: D64.9 Anemia, unspecified (principal); D72.820 Lymphocytosis (symptomatic); R53.83 Other fatigue
CPT/HCPCS: 36415; 80053; 82784; 82607; 82728; 82746; 83010; 83540; 83550; 83615; 84165; 85025; 85045; 86320; 86880